=== PATIENT | male | born 1980 | race Caucasian/White ===

== ENCOUNTER 2018-08-02 19:56 | Emergency (ER) | payer OTHER ==
[~2018-08-02] VITALS: Ht 170.2 cm; Wt 74.8 kg
[2018-08-02] MEDS ORDERED: PROBIOTIC1 EAC1 (20:12)
== END 2018-08-02 21:59 | disposition home or self-care (01) ==
LOC: ER 19:56
DX: G44.209 Tension-type headache, unspecified, not intractable (principal); F06.4 Anxiety disorder due to known physiological condition

== ENCOUNTER 2020-03-08 13:19 | Emergency (ER) | payer OTHER ==
[~2020-03-08] VITALS: Ht 172.7 cm; Wt 75.7 kg
[~2020-03-08 13:19] MED LIST: PROBIOTIC1 EAC1
[2020-03-08] MEDS ORDERED: VISTARIL25 MG PO (16:17)
== END 2020-03-08 16:19 | disposition home or self-care (01) ==
LOC: ER 13:19
DX: R00.2 Palpitations (principal); F06.4 Anxiety disorder due to known physiological condition

== ENCOUNTER 2021-01-05 02:29 | Emergency (ER) | payer OTHER ==
[~2021-01-05] VITALS: Ht 172.7 cm; Wt 70.8 kg
[~2021-01-05 02:29] MED LIST changes: +VISTARIL25 MG PO
[2021-01-05] MEDS ORDERED: PEPCID AC20 MG PO (07:47)
[2021-01-05] MEDS ORDERED: VISTARIL50 MG PO (07:47)
[2021-01-05] MEDS ORDERED: LEVSIN0.125 MG PO (07:47)
== END 2021-01-05 08:02 | disposition home or self-care (01) ==
LOC: ER 02:29
DX: R07.89 Other chest pain (principal)

== ENCOUNTER → 2022-01-16 | Emergency (ER) | payer OTHER ==
[~2022-01-16] VITALS: Ht 172.7 cm; Wt 74.8 kg
[~2022-01-16] MED LIST changes: +BACTRIM DS TAB1 EACH PO; +LEVSIN0.125 MG PO; +NAPROXEN375 MG PO; +PENTASA500 MG; +PEPCID AC20 MG PO; +PROZAC40 MG; +VISTARIL50 MG PO
== END | disposition home or self-care (01) ==
LOC: ER 23:47
DX: S81.011A Laceration without foreign body, right knee, initial encounter (principal); W25.XXXA Contact with sharp glass, initial encounter; Y93.9 Activity, unspecified; Y92.012 Bathroom of single-family (private) house as the place of occurrence of the external cause; Y99.9 Unspecified external cause status